=== PATIENT | female | born 1955 | race Caucasian/White ===

== ENCOUNTER 2016-04-18 11:35 | Inpatient (IN) | payer OTHER ==
[~2016-04-18] VITALS: Ht 165.1 cm; Wt 58.5 kg
[~2016-04-18 11:35] MED LIST: LOPRESSOR100 MG PO; NORVASC 5 MG TAB5 MG PO
[2016-04-18 13:58] LABS: HEMOGLOBIN 15.8 gm/dl (12.3-15.3); RED BLOOD COUNT 4.84 M/UL (4.00-5.10); WHITE BLOOD COUNT 11.3 K/UL (4.5-11.0)
[2016-04-19] MEDS ORDERED: ASPIRIN CHEWABL81 MG PO (15:57)
[2016-04-19] MEDS ORDERED: ELAVIL 10 MG TA10 MG PO (15:58)
[2016-04-20 06:17] LABS: BUN/CREATININE RATIO 32 (0-10)
[2016-04-21 06:54] LABS: BUN/CREATININE RATIO 32 (0-10)
[2016-04-21] MEDS ORDERED: LOPRESSOR 25 MG25 MG PO (14:20)
[2016-04-21] MEDS ORDERED: CRESTOR40 MG PO (14:21)
[2016-04-21] MEDS ORDERED: HABITROL 21 MG P1 EA TD (14:21)
[2016-04-21] MEDS ORDERED: IMDUR ER TAB 3030 MG PO (14:22)
[2016-04-21] MEDS ORDERED: FISH OIL 1,0001 EAC4 PO (14:22)
[2016-04-21] MEDS ORDERED: PROTONIX40 MG PO (14:22)
[2016-04-21] MEDS ORDERED: NITROSTAT 0.40.4 MG SL (14:23)
[2016-04-21] MEDS ORDERED: COMBIVENT0.074 GM/I INH (14:23)
[2016-04-21] MEDS ORDERED: SPIRIVA HANDIH18 MCG INH (14:24)
[2016-04-21] MEDS ORDERED: DULERA 200 MCG8.8 GM INH (14:24)
== END 2016-04-21 15:55 | disposition home or self-care (01) | DRG 286 ==
LOC: ER1 11:35 → ZEROF 19:22 → M/S 19:22 → ZEROF 19:22 → M/S 19:22
PROVIDERS: Emergency Medicine; Internal Medicine Infectious Disease; ADMIT Family Medicine
PROC: 4A023N7 Measurement of Cardiac Sampling and Pressure, Left Heart, Percutaneous Approach (ICD-10-PCS; principal; 2016-04-20)
PROC: B2111ZZ Fluoroscopy of Multiple Coronary Arteries using Low Osmolar Contrast (ICD-10-PCS; principal; 2016-04-20)
DX: I25.119 Atherosclerotic heart disease of native coronary artery with unspecified angina pectoris (principal); J96.21 Acute and chronic respiratory failure with hypoxia; J44.0 Chronic obstructive pulmonary disease with (acute) lower respiratory infection; J44.1 Chronic obstructive pulmonary disease with (acute) exacerbation; J20.9 Acute bronchitis, unspecified; J31.0 Chronic rhinitis; I10 Essential (primary) hypertension; E78.5 Hyperlipidemia, unspecified; F17.210 Nicotine dependence, cigarettes, uncomplicated; R94.31 Abnormal electrocardiogram [ECG] [EKG]; E05.90 Thyrotoxicosis, unspecified without thyrotoxic crisis or storm; E11.9 Type 2 diabetes mellitus without complications; Z88.8 Allergy status to other drugs, medicaments and biological substances; Z88.2 Allergy status to sulfonamides; Z91.041 Radiographic dye allergy status; Z79.82 Long term (current) use of aspirin; Z79.899 Other long term (current) drug therapy; Z86.79 Personal history of other diseases of the circulatory system; Z82.49 Family history of ischemic heart disease and other diseases of the circulatory system; Z80.9 Family history of malignant neoplasm, unspecified; D45 Polycythemia vera; J45.909 Unspecified asthma, uncomplicated
CPT/HCPCS: ECHO; 36415; 36600; 71010; 78452; 80048; 80053; 80061; 82550; 82553; 82803; 82962; 83036; 83605; 83735; 83874; 84439; 84443; 84484; 85025; 85379; 85610; 85730; 93005; 93017; 93306; 94640; 94664; 96372; 99285; A9502; C1769; G0378; J0461; J0583; J1200; J1644; J1720; J1815; J2250; J2270; J2405; J2785; J2930; J3010; J7030; J7050; J7509; Q9963

== ENCOUNTER → 2016-05-19 | Outpatient (CLI) | payer OTHER ==
[~2016-05-19] MED LIST changes: +ASPIRIN CHEWABL81 MG PO; +COMBIVENT0.074 GM/I INH; +CRESTOR40 MG PO; +DULERA 200 MCG8.8 GM INH; +ELAVIL 10 MG TA10 MG PO; +FISH OIL 1,0001 EAC4 PO; +HABITROL 21 MG P1 EA TD; +IMDUR ER TAB 3030 MG PO; +LEVAQUIN500 MG PO; +LOPRESSOR 25 MG25 MG PO; +MEDROL DOSEPAK 24 MG PO; +MUCINEX600 MG PO; +NITROSTAT 0.40.4 MG SL; +PROTONIX40 MG PO; +RANEXA500 MG PO; +SPIRIVA HANDIH18 MCG INH; +SYNTHROID125 MCG PO; +ZETIA10 MG PO
== END ==
LOC: HEART 5 13:55
DX: J44.9 Chronic obstructive pulmonary disease, unspecified (principal); R94.2 Abnormal results of pulmonary function studies; F17.210 Nicotine dependence, cigarettes, uncomplicated
CPT/HCPCS: 94060; 94729

== ENCOUNTER → 2016-06-01 | Outpatient (CLI) | payer OTHER | LOC: RT 12:26 | DX: R09.02 Hypoxemia (principal) | CPT/HCPCS: 36600; 82803 ==

== ENCOUNTER → 2016-06-06 | Outpatient (CLI) | payer OTHER | LOC: CT 14:30 | DX: Z87.891 Personal history of nicotine dependence (principal); J43.9 Emphysema, unspecified; R91.1 Solitary pulmonary nodule | CPT/HCPCS: G0297 ==

== ENCOUNTER → 2016-06-13 | Outpatient (CLI) | payer OTHER | LOC: MAMO 09:36 | DX: Z00.00 Encounter for general adult medical examination without abnormal findings (principal); Z12.31 Encounter for screening mammogram for malignant neoplasm of breast; Z90.710 Acquired absence of both cervix and uterus | CPT/HCPCS: G0202 ==

== ENCOUNTER 2016-07-16 22:42 | Observation (INO) | payer OTHER ==
[~2016-07-16] VITALS: Ht 165.1 cm; Wt 60.9 kg
[~2016-07-16 22:42] MED LIST changes: -LEVAQUIN500 MG PO; -MEDROL DOSEPAK 24 MG PO; -MUCINEX600 MG PO; -RANEXA500 MG PO; -SYNTHROID125 MCG PO; -ZETIA10 MG PO
[2016-07-17 00:31] LABS: HEMOGLOBIN 13.9 gm/dl (12.3-15.3); RED BLOOD COUNT 4.4 M/UL (4.00-5.10); WHITE BLOOD COUNT 11.5 K/UL (4.5-11.0)
[2016-07-17 00:52] LABS: BUN/CREATININE RATIO 23 (0-10)
[2016-07-17] MEDS ORDERED: SYNTHROID125 MCG PO (05:39)
[2016-07-17 06:01] LABS: HEMOGLOBIN 12.3 gm/dl (12.3-15.3); RED BLOOD COUNT 3.91 M/UL (4.00-5.10); WHITE BLOOD COUNT 10.5 K/UL (4.5-11.0)
[2016-07-17 06:32] LABS: BUN/CREATININE RATIO 20 (0-10)
[2016-07-18 06:27] LABS: BUN/CREATININE RATIO 18 (0-10)
[2016-07-19] MEDS ORDERED: LEVAQUIN500 MG PO ×2 (15:34→16:33)
[2016-07-19] MEDS ORDERED: MUCINEX600 MG PO ×2 (15:34→16:42)
[2016-07-19] MEDS ORDERED: MEDROL DOSEPAK 24 MG PO (16:42)
== END 2016-07-19 18:00 | disposition home or self-care (01) ==
LOC: ER1 22:42 → ZEROF 07-17 04:03 → M/S 07-17 04:03
PROVIDERS: Family Medicine; Internal Medicine Infectious Disease; ADMIT Internal Medicine
DX: J44.1 Chronic obstructive pulmonary disease with (acute) exacerbation (principal); J44.0 Chronic obstructive pulmonary disease with (acute) lower respiratory infection; J20.9 Acute bronchitis, unspecified; J96.21 Acute and chronic respiratory failure with hypoxia; I25.10 Atherosclerotic heart disease of native coronary artery without angina pectoris; E87.2 Acidosis; Z88.2 Allergy status to sulfonamides
CPT/HCPCS: 36415; 71010; 80048; 80053; 82550; 82553; 83874; 83880; 84484; 85025; 93005; 94640; 94664; 96372; 96374; 96376; 99285; G0378; J1650; J2930

== ENCOUNTER 2016-07-20 19:03 | Observation (INO) | payer OTHER ==
[~2016-07-20] VITALS: Ht 165.1 cm; Wt 62.3 kg
[~2016-07-20 19:03] MED LIST changes: +LEVAQUIN500 MG PO; +MEDROL DOSEPAK 24 MG PO; +MUCINEX600 MG PO; +SYNTHROID125 MCG PO
[2016-07-20 20:27] LABS: RED BLOOD COUNT 4.13 M/UL (4.00-5.10); WHITE BLOOD COUNT 17.3 K/UL (4.5-11.0)
[2016-07-20 20:31] LABS: BUN/CREATININE RATIO 33 (0-10)
[2016-07-21 07:05] LABS: HEMOGLOBIN 11.7 gm/dl (12.3-15.3); RED BLOOD COUNT 3.72 M/UL (4.00-5.10); WHITE BLOOD COUNT 11.6 K/UL (4.5-11.0)
[2016-07-21 07:18] LABS: BUN/CREATININE RATIO 36 (0-10)
[2016-07-21] MEDS ORDERED: RANEXA500 MG PO (13:32)
[2016-07-21] MEDS ORDERED: ZETIA10 MG PO (13:33)
== END 2016-07-21 13:51 | disposition home or self-care (01) ==
LOC: ER1 19:03 → ZEROF 22:20 → MED SURG 4 23:54 → ZEROF 23:54 → MED SURG 4 23:54
PROVIDERS: Emergency Medicine; ADMIT Internal Medicine
DX: R07.89 Other chest pain (principal); D72.829 Elevated white blood cell count, unspecified; I25.10 Atherosclerotic heart disease of native coronary artery without angina pectoris; F41.9 Anxiety disorder, unspecified; I10 Essential (primary) hypertension; E78.5 Hyperlipidemia, unspecified; E11.9 Type 2 diabetes mellitus without complications; E03.9 Hypothyroidism, unspecified; J44.9 Chronic obstructive pulmonary disease, unspecified; J45.909 Unspecified asthma, uncomplicated; I44.7 Left bundle-branch block, unspecified; Z79.82 Long term (current) use of aspirin; Z79.899 Other long term (current) drug therapy; Z87.891 Personal history of nicotine dependence; Z88.2 Allergy status to sulfonamides; Z91.041 Radiographic dye allergy status; Z90.49 Acquired absence of other specified parts of digestive tract; Z90.710 Acquired absence of both cervix and uterus
CPT/HCPCS: 36415; 71010; 80048; 80053; 82550; 82553; 82962; 83874; 83880; 84439; 84443; 84484; 85025; 85379; 93005; 94640; 94664; 96372; 96374; 99285; G0378; J1650; J2270

== ENCOUNTER 2020-07-19 19:24 | Emergency (ER) | payer MEDICARE ==
[~2020-07-19 19:24] MED LIST changes: +AUGMENTIN 875-1 EACH PO; +AZITHROMYCIN500 MG PO; +BUSPIRONE HCL15 MG PO; +CEFUROXIME500 MG PO; -ELAVIL 10 MG TA10 MG PO; +ELAVIL 50 MG TA50 MG PO; +GLUCOPHAGE 500500 MG PO; +MECLIZINE HCL25 MG PO; +NEURONTIN100 MG PO; +NEURONTIN300 MG PO; +NORCO 5-325 TA1 EACH PO; +OMNICEF 300 MG300 MG PO; +PREDNISONE20 MG PO; +PYRIDIUM200 MG PO; +RANEXA500 MG PO; +ROBITUSSIN DM UD5 ML PO; +SYMBICORT 160-1 INHA INH; +SYNTHROID112 MCG PO; -SYNTHROID125 MCG PO; +TESSALON PERLE100 MG PO; +TRAMADOL HCL50 MG PO; +ZETIA10 MG PO; +ZITHROMAX500 MG PO
[2020-07-19 19:45] LABS: HEMOGLOBIN 14.3 gm/dl (12.3-15.3); RED BLOOD COUNT 4.66 M/UL (4.00-5.10); WHITE BLOOD COUNT 9.6 K/UL (4.5-11.0)
[2020-07-19 20:06] LABS: BUN/CREATININE RATIO 24 (0-10)
[2020-07-19] MEDS ORDERED: VENTOLIN HFA 66.7 GM INH (21:29)
[2020-07-19] MEDS ORDERED: DOXYCYCLINE MO100 MG PO (21:29)
[2020-07-19] MEDS ORDERED: PREDNISONE 50 M50 MG PO (21:29)
== END 2020-07-19 22:13 | disposition home or self-care (01) ==
LOC: ER1 19:24
PROVIDERS: Emergency Medicine
DX: J44.1 Chronic obstructive pulmonary disease with (acute) exacerbation (principal); I10 Essential (primary) hypertension; E03.9 Hypothyroidism, unspecified; E78.5 Hyperlipidemia, unspecified; F17.290 Nicotine dependence, other tobacco product, uncomplicated; Z88.2 Allergy status to sulfonamides; Z91.041 Radiographic dye allergy status; Z79.899 Other long term (current) drug therapy; Z90.710 Acquired absence of both cervix and uterus; Z90.89 Acquired absence of other organs
CPT/HCPCS: 71045; 80053; 82550; 82553; 83874; 83880; 84484; 85025; 93005; 94664; 96374; 99285; J1100

== ENCOUNTER 2020-07-26 14:51 | Inpatient (IN) | payer MEDICARE ==
[~2020-07-26] VITALS: Ht 165.1 cm; Wt 63.5 kg
[~2020-07-26 14:51] MED LIST changes: +DOXYCYCLINE MO100 MG PO; +PREDNISONE 50 M50 MG PO; +VENTOLIN HFA 66.7 GM INH
[2020-07-26 15:37] LABS: HEMOGLOBIN 15.1 gm/dl (12.3-15.3); RED BLOOD COUNT 4.7 M/UL (4.00-5.10); WHITE BLOOD COUNT 11.5 K/UL (4.5-11.0)
[2020-07-26 16:09] LABS: BUN/CREATININE RATIO 20 (0-10)
[2020-07-27 05:58] LABS: HEMOGLOBIN 13.5 gm/dl (12.3-15.3); WHITE BLOOD COUNT 13.4 K/UL (4.5-11.0)
[2020-07-27 06:14] LABS: RED BLOOD COUNT 4.22 M/UL (4.00-5.10)
[2020-07-27 06:29] LABS: BUN/CREATININE RATIO 25 (0-10)
[2020-07-27] MEDS ORDERED: HYDROCODON-ACE1 EAC4 PO (11:29)
[2020-07-27] MEDS ORDERED: ZOCOR 40 MG TAB40 MG PO (11:29)
[2020-07-27] MEDS ORDERED: GABAPENTIN300 MG PO (11:29)
[2020-07-27] MEDS ORDERED: ALBUTEROL2.5 MG/3 M INH (11:30)
[2020-07-27] MEDS ORDERED: ESOMEPRAZOLE MA40 MG PO (11:31)
[2020-07-27] MEDS ORDERED: LOPRESSOR 25 MG25 MG PO (11:31)
[2020-07-27] MEDS ORDERED: VITAMIN D3125 MCG PO (11:35)
[2020-07-28 03:57] LABS: HEMOGLOBIN 13.6 gm/dl (12.3-15.3); RED BLOOD COUNT 4.25 M/UL (4.00-5.10)
[2020-07-28 04:01] LABS: WHITE BLOOD COUNT 25.5 K/UL (4.5-11.0)
[2020-07-28 04:49] LABS: BUN/CREATININE RATIO 27 (0-10)
[2020-07-29 04:35] LABS: HEMOGLOBIN 13.1 gm/dl (12.3-15.3); RED BLOOD COUNT 4.15 M/UL (4.00-5.10); WHITE BLOOD COUNT 19.4 K/UL (4.5-11.0)
[2020-07-29 05:02] LABS: BUN/CREATININE RATIO 29 (0-10)
[2020-07-30 04:14] LABS: HEMOGLOBIN 13.9 gm/dl (12.3-15.3); RED BLOOD COUNT 4.35 M/UL (4.00-5.10); WHITE BLOOD COUNT 18.7 K/UL (4.5-11.0)
[2020-07-30 04:41] LABS: BUN/CREATININE RATIO 38 (0-10)
--- NOTE | 2020-07-30 17:36 | NUR ---
MD NOTIFIED OF PATIENT SHORT OF BREATH, SATTING 75-80% ON AIRVO @ 45% MD GAVE ORDERS TO OBTAIN ABG PATIENT'S O2 TURNED TO 90% MD GAVE ORDERS TO FIT PATIENT FOR BIPAP AND MOVE TO PCU PATIENT O2 SAT IS 96% ON 90% AIRVO PATIENT'S VITALS ARE STABLE, PATIENT IS CALM AND NOT COMPLAINING OF SHORTNESS OF AIR AT THIS TIME, WCTM....
[2020-07-31 03:10] LABS: RED BLOOD COUNT 4.42 M/UL (4.00-5.10); WHITE BLOOD COUNT 19.4 K/UL (4.5-11.0)
[2020-07-31 03:23] LABS: BUN/CREATININE RATIO 46 (0-10)
[2020-08-01 02:33] LABS: HEMOGLOBIN 13.9 gm/dl (12.3-15.3); RED BLOOD COUNT 4.38 M/UL (4.00-5.10); WHITE BLOOD COUNT 20.9 K/UL (4.5-11.0)
[2020-08-01 03:01] LABS: BUN/CREATININE RATIO 50 (0-10)
[2020-08-01] MEDS ORDERED: MEDROL4 MG PO ×2 (12:27→14:59)
[2020-08-01] MEDS ORDERED: IPRAT-ALBUT 0.5-3 ML NEB (12:32)
[2020-08-01] MEDS ORDERED: IPRAT-ALBUT 0.5-3 ML INH (14:59)
== END 2020-08-01 13:54 | disposition home or self-care (01) | DRG 189 ==
LOC: ER1 14:51 → CDU 23:04 → MED SURG 4 07-27 17:57 → PROG CARE 07-29 14:43
PROVIDERS: Emergency Medicine; Physician Assistant; ADMIT Internal Medicine
PROC: 5A09357 Assistance with Respiratory Ventilation, Less than 24 Consecutive Hours, Continuous Positive Airway Pressure (ICD-10-PCS; principal; 2020-07-30)
DX: J96.21 Acute and chronic respiratory failure with hypoxia (principal); J44.1 Chronic obstructive pulmonary disease with (acute) exacerbation; J96.22 Acute and chronic respiratory failure with hypercapnia; F17.210 Nicotine dependence, cigarettes, uncomplicated; E78.5 Hyperlipidemia, unspecified; E11.9 Type 2 diabetes mellitus without complications; Z20.822 Contact with and (suspected) exposure to COVID-19; E03.9 Hypothyroidism, unspecified; Z79.82 Long term (current) use of aspirin; Z79.899 Other long term (current) drug therapy; Z99.81 Dependence on supplemental oxygen; Z90.710 Acquired absence of both cervix and uterus; Z80.1 Family history of malignant neoplasm of trachea, bronchus and lung; Z82.49 Family history of ischemic heart disease and other diseases of the circulatory system; Z91.041 Radiographic dye allergy status
CPT/HCPCS: 36415; 36600; 71045; 71250; 80048; 80053; 82550; 82553; 82803; 82962; 83605; 83690; 84484; 85025; 85610; 85730; 86140; 93005; 94640; 94660; 94664; 94760; 96365; 96366; 96367; 96372; 96374; 96375; 96376; 99285; G0378; J0456; J0696; J1120; J1650; J2060; J2920; J2930; J7030; U0002

== ENCOUNTER 2020-08-15 23:30 | Emergency (ER) | payer MEDICARE ==
[~2020-08-15 23:30] MED LIST changes: +ALBUTEROL2.5 MG/3 M INH; +ESOMEPRAZOLE MA40 MG PO; +GABAPENTIN300 MG PO; +HYDROCODON-ACE1 EAC4 PO; +IPRAT-ALBUT 0.5-3 ML INH; +IPRAT-ALBUT 0.5-3 ML NEB; +MEDROL4 MG PO; +VITAMIN D3125 MCG PO; +ZOCOR 40 MG TAB40 MG PO
[2020-08-16 00:14] LABS: HEMOGLOBIN 13.1 gm/dl (12.3-15.3); RED BLOOD COUNT 4.08 M/UL (4.00-5.10); WHITE BLOOD COUNT 8.7 K/UL (4.5-11.0)
[2020-08-16 00:38] LABS: BUN/CREATININE RATIO 16 (0-10)
[2020-08-16] MEDS ORDERED: PREDNISONE50 MG PO (04:57)
[2020-08-16] MEDS ORDERED: ZITHROMAX250 MG PO (04:57)
== END 2020-08-16 05:20 | disposition home or self-care (01) ==
LOC: ER1 23:30
PROVIDERS: Emergency Medicine
DX: J44.1 Chronic obstructive pulmonary disease with (acute) exacerbation (principal); I10 Essential (primary) hypertension; F17.200 Nicotine dependence, unspecified, uncomplicated; Z20.822 Contact with and (suspected) exposure to COVID-19; Z91.041 Radiographic dye allergy status
CPT/HCPCS: 0240U; 36600; 71045; 80053; 82550; 82553; 82803; 83735; 83874; 83880; 84484; 85025; 93005; 94640; 94664; 94760; 96374; 99285; J2930

== ENCOUNTER 2020-08-27 19:06 | Inpatient (IN) | payer MEDICARE ==
[~2020-08-27] VITALS: Ht 165.1 cm; Wt 63.5 kg
[~2020-08-27 19:06] MED LIST changes: +PREDNISONE50 MG PO; +ZITHROMAX250 MG PO
[2020-08-27 19:44] LABS: HEMOGLOBIN 12.8 gm/dl (12.3-15.3); RED BLOOD COUNT 4.02 M/UL (4.00-5.10); WHITE BLOOD COUNT 12.7 K/UL (4.5-11.0)
[2020-08-27 20:24] LABS: BUN/CREATININE RATIO 26 (0-10)
[2020-08-28] MEDS ORDERED: HYDROCHLOROTH12.5 MG PO (04:29)
[2020-08-28] MEDS ORDERED: BROVANA15 MCG/2 M INH (04:29)
[2020-08-28] MEDS ORDERED: YUPELRI175 MCG/3 INH (04:30)
[2020-08-29 03:13] LABS: BUN/CREATININE RATIO 23 (0-10)
--- NOTE | 2020-08-31 | NUR ---
INFORMED DURING SHIFT CHANGE REPORT THAT PATIENT WAS HAVING PERIODIC EPISODES OF CONFUSION AND DELUSIONS. PATIENT'S DAUGHTER ARRIVED WITH PATIENT'S AND PATIENT BECAME SOMNOLENT AND APPEARED TO FORGET WHO THEY WERE. PATIENT'S DAUGHTER STATED SHE WAS VERY CONCERNED BECAUSE THE PATIENT 'WAS DROOLING AND STARING OFF INTO SPACE...SHE'S NEVER BEEN LIKE THIS BEFORE'. AFTER DAUGHTER LEFT, PATIENT CONTINUED TO APPEAR CONFUSED AND BEHAVED THOUGH SHE COULD NOT IDENTIFY THE STAFF OR HER . HOWEVER, AFTER PATIENT'S DAUGHTER HAD BEEN GONE FOR APPROXIMATELY 30 MINUTES, PATIENT SAT UP IN BED AND BEGAN HAVING A CONVERSATION WITH THE NURSE AND HER ABOUT HER CHILDHOOD, HOW SHE MET HER AND A VARIETY OF OTHER TOPICS DURING WHICH SHE WAS PERFECTLY CALM AND LUCID. PATIENT'S O2 HAS REMAINED 98-100% ON AIRVO. EXTERNAL ALONSO HAS BEEN PLACED, PATIENT IS TOLERATING WELL.
[2020-08-31 02:29] LABS: RED BLOOD COUNT 3.82 M/UL (4.00-5.10); WHITE BLOOD COUNT 14.8 K/UL (4.5-11.0)
[2020-08-31 03:03] LABS: BUN/CREATININE RATIO 27 (0-10)
[2020-09-01] MEDS ORDERED: HUMIBID LA TAB600 MG PO (13:04)
[2020-09-01] MEDS ORDERED: BUDESONIDE0.5 MG/2 M NEB ×2 (13:04→13:29)
[2020-09-01] MEDS ORDERED: COLACE100 MG PO (13:04)
[2020-09-01] MEDS ORDERED: ATIVAN 1MG TABLE1 MG PO (13:04)
[2020-09-01] MEDS ORDERED: MIRALAX17 GM PO (13:04)
[2020-09-01] MEDS ORDERED: PERCOCET 5/325 T1 EA PO (13:23)
[2020-09-01] MEDS ORDERED: DOXYCYCLINE HY100 M2 PO (13:37)
--- NOTE | 2020-09-01 18:27 | NUR ---
PATIENT AWAITING EMS TRANSPORT HOME. NADN. FAMILY AT BEDSIDE.
== END 2020-09-01 19:30 | DRG 189 ==
LOC: ER1 19:06 → PROG CARE 08-28 01:14 → CDU 08-28 01:14 → MED SURG 4 08-28 01:14 → PROG CARE 08-29 10:30
PROVIDERS: Emergency Medicine; ADMIT Internal Medicine
DX: J96.21 Acute and chronic respiratory failure with hypoxia (principal); J44.1 Chronic obstructive pulmonary disease with (acute) exacerbation; G93.40 Encephalopathy, unspecified; J96.22 Acute and chronic respiratory failure with hypercapnia; I10 Essential (primary) hypertension; E78.5 Hyperlipidemia, unspecified; F17.210 Nicotine dependence, cigarettes, uncomplicated; E11.9 Type 2 diabetes mellitus without complications; E03.9 Hypothyroidism, unspecified; K21.9 Gastro-esophageal reflux disease without esophagitis; Z79.899 Other long term (current) drug therapy; Z66 Do not resuscitate; Z91.19 Patient's noncompliance with other medical treatment and regimen; Z99.81 Dependence on supplemental oxygen; Z90.710 Acquired absence of both cervix and uterus; Z80.1 Family history of malignant neoplasm of trachea, bronchus and lung; Z82.49 Family history of ischemic heart disease and other diseases of the circulatory system; Z79.82 Long term (current) use of aspirin; Z51.5 Encounter for palliative care; F41.9 Anxiety disorder, unspecified
CPT/HCPCS: 36415; 36600; 71045; 80048; 80053; 81001; 82550; 82553; 82803; 82962; 83605; 83690; 83735; 84484; 85025; 85027; 85610; 85730; 86850; 86900; 86901; 87040; 87070; 87086; 87205; 93005; 94640; 94644; 94660; 94664; 94760; 96374; 96375; 99285; J0696; J1200; J1650; J2920; J2930; Q9967; U0002

== ENCOUNTER 2020-09-10 13:14 | Emergency (ER) | payer MEDICARE ==
[~2020-09-10 13:14] MED LIST changes: +ATIVAN 1MG TABLE1 MG PO; +BROVANA15 MCG/2 M INH; +BUDESONIDE0.5 MG/2 M NEB; +COLACE100 MG PO; +DOXYCYCLINE HY100 M2 PO; +HUMIBID LA TAB600 MG PO; +HYDROCHLOROTH12.5 MG PO; +MIRALAX17 GM PO; +PERCOCET 5/325 T1 EA PO; +YUPELRI175 MCG/3 INH
[2020-09-10 15:07] LABS: RED BLOOD COUNT 3.82 M/UL (4.00-5.10); WHITE BLOOD COUNT 19.6 K/UL (4.5-11.0)
[2020-09-10 15:22] LABS: BUN/CREATININE RATIO 32 (0-10)
[2020-09-10] MEDS ORDERED: PERCOCET 5/325 T1 EA PO (19:59)
== END 2020-09-10 20:05 | disposition home or self-care (01) ==
LOC: ER1 13:14
DX: S32.018A Other fracture of first lumbar vertebra, initial encounter for closed fracture (principal); J44.9 Chronic obstructive pulmonary disease, unspecified; W20.8XXA Other cause of strike by thrown, projected or falling object, initial encounter
CPT/HCPCS: 70450; 71250; 72131; 80053; 81001; 85025; 93005; 96374; 99284; J2270

== ENCOUNTER 2020-09-13 00:25 | Inpatient (IN) | payer MEDICARE, OTHER ==
[~2020-09-13] VITALS: Ht 165.1 cm; Wt 63.5 kg
[2020-09-13 01:22] LABS: HEMOGLOBIN 13.6 gm/dl (12.3-15.3); RED BLOOD COUNT 4.15 M/UL (4.00-5.10); WHITE BLOOD COUNT 20.6 K/UL (4.5-11.0)
[2020-09-13 07:00] LABS: HEMOGLOBIN 12.3 gm/dl (12.3-15.3); RED BLOOD COUNT 3.83 M/UL (4.00-5.10); WHITE BLOOD COUNT 23.2 K/UL (4.5-11.0)
[2020-09-14 03:49] LABS: RED BLOOD COUNT 3.75 M/UL (4.00-5.10); WHITE BLOOD COUNT 19.6 K/UL (4.5-11.0)
[2020-09-14] MEDS ORDERED: HYDROCODON-ACE1 EAC4 PO (12:49)
[2020-09-14] MEDS ORDERED: ZOCOR40 MG PO (12:50)
[2020-09-14] MEDS ORDERED: AMITRIPTYLINE H50 MG PO (13:01)
[2020-09-14] MEDS ORDERED: METOPROLOL TART25 MG PO (13:02)
[2020-09-14] MEDS ORDERED: ZETIA10 MG PO (13:02)
[2020-09-14] MEDS ORDERED: VENTOLIN HFA 66.7 GM INH (13:17)
[2020-09-15 04:33] LABS: WHITE BLOOD COUNT 16.6 K/UL (4.5-11.0)
[2020-09-15 04:35] LABS: HEMOGLOBIN 9.8 gm/dl (12.3-15.3); RED BLOOD COUNT 3.01 M/UL (4.00-5.10)
[2020-09-15 05:08] LABS: HBSAG SCREEN Negative (Negative); HEP A AB, IGM Negative (Negative); HEP B CORE AB, IGM Negative (Negative); HEP C VIRUS AB <0.1 (0.0-0.9)
[2020-09-15 05:22] LABS: BUN/CREATININE RATIO 32 (0-10)
[2020-09-16 04:51] LABS: RED BLOOD COUNT 3.14 M/UL (4.00-5.10); WHITE BLOOD COUNT 13.1 K/UL (4.5-11.0)
[2020-09-16 05:38] LABS: BUN/CREATININE RATIO 39 (0-10)
[2020-09-17 03:50] LABS: HEMOGLOBIN 10.2 gm/dl (12.3-15.3); RED BLOOD COUNT 3.2 M/UL (4.00-5.10); WHITE BLOOD COUNT 11.5 K/UL (4.5-11.0)
[2020-09-17 04:19] LABS: BUN/CREATININE RATIO 37 (0-10)
[2020-09-18 07:37] LABS: HEMOGLOBIN 10.3 gm/dl (12.3-15.3); RED BLOOD COUNT 3.25 M/UL (4.00-5.10)
[2020-09-18 07:38] LABS: WHITE BLOOD COUNT 8.4 K/UL (4.5-11.0)
[2020-09-18 08:06] LABS: BUN/CREATININE RATIO 30 (0-10)
[2020-09-19 05:50] LABS: HEMOGLOBIN 9.4 gm/dl (12.3-15.3); RED BLOOD COUNT 3.16 M/UL (4.00-5.10); WHITE BLOOD COUNT 8.7 K/UL (4.5-11.0)
[2020-09-19 06:09] LABS: BUN/CREATININE RATIO 17 (0-10)
[2020-09-20 07:03] LABS: HEMOGLOBIN 8.7 gm/dl (12.3-15.3); RED BLOOD COUNT 2.91 M/UL (4.00-5.10)
[2020-09-20 07:34] LABS: BUN/CREATININE RATIO 18 (0-10)
[2020-09-20] MEDS ORDERED: ASPIRIN EC81 MG PO (10:16)
[2020-09-20] MEDS ORDERED: METOPROLOL TART25 MG PO (10:16)
[2020-09-20] MEDS ORDERED: ULTRAM50 MG PO (10:16)
[2020-09-20] MEDS ORDERED: MIRALAX17 GM PO (10:24)
[2020-09-20] MEDS ORDERED: COLACE100 MG PO (10:24)
[2020-09-20] MEDS ORDERED: LOPRESSOR 25 MG25 MG PO (10:43)
== END 2020-09-20 13:28 | disposition home health service (06) | DRG 871 ==
LOC: ER1 00:25 → M/S 03:17 → CDU 03:17 → M/S 06:23
PROVIDERS: Internal Medicine Infectious Disease; Physician Assistant; Physician Assistant Surgical; Student in an Organized Health Care Education/Training Program; ADMIT Internal Medicine
PROC: B24BZZ4 Ultrasonography of Heart with Aorta, Transesophageal (ICD-10-PCS; principal; 2020-09-13)
DX: A41.9 Sepsis, unspecified organism (principal); I21.A1 Myocardial infarction type 2; K72.00 Acute and subacute hepatic failure without coma; Z20.822 Contact with and (suspected) exposure to COVID-19; Z51.5 Encounter for palliative care; A09 Infectious gastroenteritis and colitis, unspecified; S32.019A Unspecified fracture of first lumbar vertebra, initial encounter for closed fracture; N17.9 Acute kidney failure, unspecified; K56.600 Partial intestinal obstruction, unspecified as to cause; J98.11 Atelectasis; J90 Pleural effusion, not elsewhere classified; J96.12 Chronic respiratory failure with hypercapnia; J96.11 Chronic respiratory failure with hypoxia; E86.0 Dehydration; I27.20 Pulmonary hypertension, unspecified; E87.5 Hyperkalemia; J43.9 Emphysema, unspecified; E78.5 Hyperlipidemia, unspecified; E03.9 Hypothyroidism, unspecified; I25.10 Atherosclerotic heart disease of native coronary artery without angina pectoris; W18.30XA Fall on same level, unspecified, initial encounter; E11.9 Type 2 diabetes mellitus without complications; G89.29 Other chronic pain; I08.2 Rheumatic disorders of both aortic and tricuspid valves; Z87.311 Personal history of (healed) other pathological fracture; Z79.4 Long term (current) use of insulin; Z91.81 History of falling; Z79.82 Long term (current) use of aspirin; Z79.899 Other long term (current) drug therapy; Z99.81 Dependence on supplemental oxygen; Z90.49 Acquired absence of other specified parts of digestive tract; Z90.710 Acquired absence of both cervix and uterus; Z91.041 Radiographic dye allergy status; Z82.49 Family history of ischemic heart disease and other diseases of the circulatory system; Z80.1 Family history of malignant neoplasm of trachea, bronchus and lung; Z87.891 Personal history of nicotine dependence; Z88.2 Allergy status to sulfonamides
CPT/HCPCS: ECHO; 36415; 36600; 70450; 71045; 71250; 74018; 76705; 80048; 80053; 80074; 80202; 80307; 81001; 82550; 82553; 82803; 83605; 83690; 83735; 83874; 83880; 84100; 84439; 84443; 84484; 85025; 85610; 86140; 87040; 93005; 93306; 94640; 94664; 94760; 96374; 97116-GP-CQ; 97161; 97530; 97530-GP-CQ; 99285; J0295; J0696; J1335; J1650; J1940; J2185; J2405; J3370; J3480; J7030; J7070; U0002